=== PATIENT | male | born 1940 | race Caucasian/White ===

== ENCOUNTER → 2022-01-28 | Outpatient (CLI) | payer MEDICARE ==
[~2022-01-28] MED LIST: ASCO500 PO; ASPI81CH PO; CARV6.25 PO; DIGO.125 PO; DILT180ER PO; DILT240 PO; DULERA 100 MCG/13 GM INH; FERR325 PO; FOLI1 PO; FOLI400 PO; INS70/30PN SC; IPRAIS NEB; IRBE150 PO; IRON PO; IRON150C PO; LISI5 PO; METF500 PO; PANT40 PO; PRAV20 PO; PRED20 PO; Pravachol40 MG PO; UBID10 PO; Vitamin D2000 UNIT PO; WARF5 PO; WARF7.5 PO
== END | disposition home or self-care (01) ==
LOC: LAB SHORT 15:07 → PLD 15:07
DX: L72.8 Other follicular cysts of the skin and subcutaneous tissue (principal)
CPT/HCPCS: 88305

== ENCOUNTER 2022-12-16 08:07 | Day surgery (SDC) | payer MEDICARE ==
[~2022-12-16] VITALS: Ht 200.7 cm; Wt 82.8 kg
--- NOTE | 2022-12-16 08:38 | NUR ---
12/16/22 0838 Myriam Gordon History, Chart, Medications and Allergies reviewed before start of procedure. DR MCKNIGHT PROVIDING ANESTHESIA, SEE RECORDS
[2022-12-16] MEDS ORDERED: CLOP75 PO (08:40)
[2022-12-16 08:41] VITALS: BP 151/51
--- NOTE | 2022-12-16 08:48 | NUR ---
PT TO SDS VIA . History, Chart, Medications and Allergies reviewed before start of procedure. Lungs clear T/O to Auscultation. Patient confirms NPO status and agrees with scheduled surgery. Pre-Op teaching done. Pt verbalizes understanding. Patient States Post-Procedure ride home has been arranged.
[2022-12-16 09:48] VITALS: BP 99/44
--- NOTE | 2022-12-16 09:50 | NUR ---
REPORT RECEIVED FROM EDMOND FRANCOIS RN. PT ABLE TO REPOSITION SELF IN BED. PT REQUESTING PO FLUIDS AND TOLERATING THEM WELL. PT DENIES PAIN, NAUSEA, OR OTHER DISCOMFORTS AT THIS TIME.
[2022-12-16 10:03] VITALS: BP 140/70
--- NOTE | 2022-12-16 10:25 | NUR ---
Patient up to Ambulate independently. Gait steady AND CONSISTENT WITH PT BASELINE. VSS AND CONSISTENT WITH PT BASELINE. Discharge instructions reviewed with patient. Patient verbalizes understanding. Copy given to patient to take home. Patient States Post-Procedure ride home has been arranged. Discharged via wheelchair to private car for ride home. PT BELONGINGS RETURNED TO PT.
== END 2022-12-16 10:27 | disposition home or self-care (01) ==
LOC: ORD 08:07 → ORSCMMR 08:07 → ORD 09:00
PROVIDERS: Internal Medicine Gastroenterology
PROC: 0DB68ZX Excision of Stomach, Via Natural or Artificial Opening Endoscopic, Diagnostic (ICD-10-PCS; principal; 2022-12-16 09:00)
PROC: 0DBL8ZX Excision of Transverse Colon, Via Natural or Artificial Opening Endoscopic, Diagnostic (ICD-10-PCS; principal; 2022-12-16 09:00)
PROC: 0DB98ZX Excision of Duodenum, Via Natural or Artificial Opening Endoscopic, Diagnostic (ICD-10-PCS; principal; 2022-12-16 09:00)
DX: D50.0 Iron deficiency anemia secondary to blood loss (chronic) (principal); K29.50 Unspecified chronic gastritis without bleeding; K31.A0 Gastric intestinal metaplasia, unspecified; D12.3 Benign neoplasm of transverse colon; K57.30 Diverticulosis of large intestine without perforation or abscess without bleeding; K92.1 Melena; G47.33 Obstructive sleep apnea (adult) (pediatric); I25.10 Atherosclerotic heart disease of native coronary artery without angina pectoris; E11.22 Type 2 diabetes mellitus with diabetic chronic kidney disease; N18.9 Chronic kidney disease, unspecified; I73.9 Peripheral vascular disease, unspecified; I48.91 Unspecified atrial fibrillation; Z95.0 Presence of cardiac pacemaker; Z79.02 Long term (current) use of antithrombotics/antiplatelets; Z79.899 Other long term (current) drug therapy
CPT/HCPCS: 82947; 88305; 88342; J2704; J7120

== ENCOUNTER → 2023-02-10 | Outpatient (CLI) | payer MEDICARE ==
[~2023-02-10] MED LIST changes: +CLOP75 PO
[2023-02-10 19:32] LABS: BASOPHILS PERCENT AUTO 2 % (0-2); EOSINOPHILS ABSOLUTE AUTO 0.41 K/mm3 (0.00-0.68); EOSINOPHILS PERCENT AUTO 7 % (0-6); Hematocrit 33.8 % (37.0-53.0); Hemoglobin 10.7 g/dL (13.5-17.5); IMMATURE GRAN ABSOLUTE AUTO 0.03 K/mm3 (0.00-0.10); IMMATURE GRAN PERCENT AUTO 1 % (0-1); LYMPHOCYTES PERCENT AUTO 13 % (21-46); MONOCYTES ABSOLUTE AUTO 0.59 K/mm3 (0.16-1.47); MONOCYTES PERCENT AUTO 10 % (4-13); Mean Corpuscular HGB 25.8 pg (26.0-34.0); Mean Corpuscular HGB Conc 31.7 g/dL (31.5-36.5); Mean Corpuscular Volume 82 fL (80-100); Mean Platelet Volume 10.4 fL (9.1-12.4); NEUTROPHILS ABSOLUTE AUTO 4.28 K/mm3 (1.96-9.15); NEUTROPHILS PERCENT AUTO 69 % (41-73); Platelet Count 146 K/mm3 (150-400); RDW Coefficient Variation 13.8 % (11.7-14.2); RDW Standard Deviation 40.5 fL (35.1-46.3); Red Blood Cell Count 4.14 M/mm3 (4.30-5.90); White Blood Cell Count 6.21 K/mm3 (4.00-11.30)
[2023-02-10 20:31] LABS: Alanine Aminotransfer (ALT/SGP 18 U/L (12-78); Albumin, Blood 3.8 g/dL (3.4-5.0); Albumin/Globulin Ratio 1.2 (0.8-1.8); Alk Phos 84 U/L (50-136); Anion Gap 7 mmol/L (6-16); Aspartate Aminotrans (AST/SGOT 52 U/L (12-37); Bilirubin, Total 0.7 mg/dL (0.1-1.0); Blood Urea Nitrogen 31 mg/dL (8-24); CHOL/HDL RATIO 4.6; CO2, Blood 24 mmol/L (21-32); Calcium, Blood 9.3 mg/dL (8.5-10.1); Chloride, Blood 109 mmol/L (98-108); Cholesterol 151 mg/dL (50-200); Creatinine, Blood 1.72 mg/dL (0.60-1.20); Globulin, Blood 3.3 g/dL (2.2-4.0); Glomerular Filtration Rate 39 (60-); Glucose, Blood 113 mg/dL (70-99); HDL Cholesterol 33 mg/dL (>39); Low Density Lipoprotein Chol 99 mg/dL (0-110); Potassium, Blood 4.4 mmol/L (3.5-5.5); Sodium, Blood 140 mmol/L (136-145); Total Protein, Blood 7.1 g/dL (6.4-8.2); Triglycerides 96 mg/dL (30-160); Very Low Density Lipoprot Chol 19 mg/dL (6-32)
== END | disposition home or self-care (01) ==
LOC: LAB SHORT 12:45 → LAB 12:45
PROVIDERS: Family Medicine
DX: E03.9 Hypothyroidism, unspecified (principal); E78.2 Mixed hyperlipidemia; I10 Essential (primary) hypertension
CPT/HCPCS: 80053; 80061; 84436; 84443; 85025

== ENCOUNTER 2024-01-12 15:49 | Emergency (ER) | payer MEDICARE ==
[~2024-01-12] VITALS: Ht 170.2 cm; Wt 81.7 kg
[~2024-01-12 15:49] MED LIST changes: -FERR325 PO; +FERSU300 PO
[2024-01-12 16:39] LABS: BASOPHILS ABSOLUTE AUTO 0.09 K/mm3 (0.00-0.23); BASOPHILS PERCENT AUTO 1 % (0-2); EOSINOPHILS PERCENT AUTO 9 % (0-6); Hematocrit 36.5 % (37.0-53.0); Hemoglobin 11.9 g/dL (13.5-17.5); IMMATURE GRAN ABSOLUTE AUTO 0.02 K/mm3 (0.00-0.10); IMMATURE GRAN PERCENT AUTO 0 % (0-1); LYMPHOCYTES ABSOLUTE AUTO 0.83 K/mm3 (0.84-5.20); LYMPHOCYTES PERCENT AUTO 11 % (21-46); MONOCYTES PERCENT AUTO 9 % (4-13); Mean Corpuscular HGB 29.1 pg (26.0-34.0); Mean Corpuscular HGB Conc 32.6 g/dL (31.5-36.5); Mean Corpuscular Volume 89 fL (80-100); Mean Platelet Volume 9.6 fL (9.1-12.4); NEUTROPHILS ABSOLUTE AUTO 5.22 K/mm3 (1.96-9.15); NEUTROPHILS PERCENT AUTO 69 % (41-73); Platelet Count 151 K/mm3 (150-400); RDW Coefficient Variation 13.8 % (11.7-14.2); RDW Standard Deviation 45.5 fL (35.1-46.3); Red Blood Cell Count 4.09 M/mm3 (4.30-5.90); White Blood Cell Count 7.56 K/mm3 (4.00-11.30)
[2024-01-12] MEDS ORDERED: Vitamin D2000 UNIT PO (16:54)
[2024-01-12] MEDS ORDERED: FURO20 PO (16:54)
[2024-01-12] MEDS ORDERED: EUTHYROX50 MCG PO (16:54)
[2024-01-12] MEDS ORDERED: AMOCLA875 PO (16:55)
[2024-01-12] MEDS ORDERED: Lyrica25 MG PO (16:55)
[2024-01-12] MEDS ORDERED: Doxycycline Mo100 M1 PO (16:55)
[2024-01-12 17:02] LABS: Albumin, Blood 3.6 g/dL (3.4-5.0); Albumin/Globulin Ratio 1.1 (0.8-1.8); Bilirubin, Total 0.7 mg/dL (0.1-1.0); Bun/Creatinine Ratio 16.6 (12.0-20.0); Calcium, Blood 9.1 mg/dL (8.5-10.1); Creatinine, Blood 1.87 mg/dL (0.60-1.20); Globulin, Blood 3.4 g/dL (2.2-4.0); Potassium, Blood 4.5 mmol/L (3.5-5.5)
[2024-01-12] MEDS ORDERED: NS 1,000 ML IV SCH (17:35)
[2024-01-12] MEDS ORDERED: Morphine Sulfate 4 MG/1 ML Injection IV ONE (17:40)
[2024-01-12] MEDS ORDERED: Acetaminophen 500 MG Tab PO ONE (17:40)
[2024-01-12 18:02] VITALS: BP 142/92
[2024-01-12] MEDS ORDERED: Morphine Sulfat15 MG PO (18:04)
== END 2024-01-12 18:50 | disposition home or self-care (01) ==
LOC: ER 15:49
PROVIDERS: Physician Assistant
DX: E11.621 Type 2 diabetes mellitus with foot ulcer (principal); L97.529 Non-pressure chronic ulcer of other part of left foot with unspecified severity; M86.9 Osteomyelitis, unspecified; N17.9 Acute kidney failure, unspecified; Z88.8 Allergy status to other drugs, medicaments and biological substances; Z88.2 Allergy status to sulfonamides; Z79.899 Other long term (current) drug therapy; I10 Essential (primary) hypertension; I48.91 Unspecified atrial fibrillation; E11.40 Type 2 diabetes mellitus with diabetic neuropathy, unspecified
CPT/HCPCS: 80053; 83605; 85025; 86140; 96361; 96374; 99284-25; A9270; J2270; J7030

== ENCOUNTER 2024-01-16 07:13 | Day surgery (SDC) | payer MEDICARE ==
[~2024-01-16 07:13] MED LIST changes: +AMOCLA875 PO; +Doxycycline Mo100 M1 PO; +EUTHYROX50 MCG PO; +FURO20 PO; +Lyrica25 MG PO; +Morphine Sulfat15 MG PO
[2024-01-16] MEDS ORDERED: Lidocaine HCl 4% Cream 5 GM ONE (12:25)
== END 2024-01-17 00:04 | disposition home or self-care (01) ==
LOC: WOUND 07:13
DX: E11.621 Type 2 diabetes mellitus with foot ulcer (principal); L97.522 Non-pressure chronic ulcer of other part of left foot with fat layer exposed; E11.40 Type 2 diabetes mellitus with diabetic neuropathy, unspecified; I48.91 Unspecified atrial fibrillation; J44.9 Chronic obstructive pulmonary disease, unspecified; G47.30 Sleep apnea, unspecified; E11.51 Type 2 diabetes mellitus with diabetic peripheral angiopathy without gangrene; E11.22 Type 2 diabetes mellitus with diabetic chronic kidney disease; I13.0 Hypertensive heart and chronic kidney disease with heart failure and stage 1 through stage 4 chronic kidney disease, or unspecified chronic kidney disease; N18.30 Chronic kidney disease, stage 3 unspecified; I50.9 Heart failure, unspecified; E11.59 Type 2 diabetes mellitus with other circulatory complications; M86.9 Osteomyelitis, unspecified; Z88.2 Allergy status to sulfonamides; Z87.891 Personal history of nicotine dependence
CPT/HCPCS: A9270; G0463

== ENCOUNTER 2024-02-13 00:55 | Day surgery (SDC) | payer MEDICARE | END 2024-02-14 22:53 | disposition home or self-care (01) | LOC: WOUND 00:55 | DX: E11.621 Type 2 diabetes mellitus with foot ulcer (principal); E11.59 Type 2 diabetes mellitus with other circulatory complications; M86.9 Osteomyelitis, unspecified; E11.51 Type 2 diabetes mellitus with diabetic peripheral angiopathy without gangrene; E11.22 Type 2 diabetes mellitus with diabetic chronic kidney disease; I12.9 Hypertensive chronic kidney disease with stage 1 through stage 4 chronic kidney disease, or unspecified chronic kidney disease; N18.30 Chronic kidney disease, stage 3 unspecified; J44.9 Chronic obstructive pulmonary disease, unspecified | CPT/HCPCS: G0463 ==

== ENCOUNTER 2024-02-27 02:13 | Day surgery (SDC) | payer MEDICARE ==
[2024-02-27] MEDS ORDERED: Lidocaine HCl 4% Cream 5 GM ONE (10:32)
== END 2024-02-27 23:00 | disposition home or self-care (01) ==
LOC: WOUND 02:13
DX: E11.621 Type 2 diabetes mellitus with foot ulcer (principal); L97.512 Non-pressure chronic ulcer of other part of right foot with fat layer exposed; E11.69 Type 2 diabetes mellitus with other specified complication; M86.9 Osteomyelitis, unspecified; I12.9 Hypertensive chronic kidney disease with stage 1 through stage 4 chronic kidney disease, or unspecified chronic kidney disease; E11.22 Type 2 diabetes mellitus with diabetic chronic kidney disease; N18.30 Chronic kidney disease, stage 3 unspecified; J44.9 Chronic obstructive pulmonary disease, unspecified; E11.51 Type 2 diabetes mellitus with diabetic peripheral angiopathy without gangrene
CPT/HCPCS: A9270

== ENCOUNTER 2024-03-12 04:00 | Day surgery (SDC) | payer MEDICARE ==
[2024-03-12] MEDS ORDERED: Lidocaine HCl 4% Cream 5 GM ONE (10:30)
== END 2024-03-12 23:00 ==
LOC: WOUND 04:00
DX: E11.621 Type 2 diabetes mellitus with foot ulcer (principal); L97.522 Non-pressure chronic ulcer of other part of left foot with fat layer exposed; E11.59 Type 2 diabetes mellitus with other circulatory complications; M86.9 Osteomyelitis, unspecified; E11.22 Type 2 diabetes mellitus with diabetic chronic kidney disease; I12.9 Hypertensive chronic kidney disease with stage 1 through stage 4 chronic kidney disease, or unspecified chronic kidney disease; N18.30 Chronic kidney disease, stage 3 unspecified; J44.9 Chronic obstructive pulmonary disease, unspecified; E11.51 Type 2 diabetes mellitus with diabetic peripheral angiopathy without gangrene; I48.91 Unspecified atrial fibrillation
CPT/HCPCS: A9270; G0463

== ENCOUNTER 2024-03-19 04:42 | Day surgery (SDC) | payer MEDICARE | END 2024-03-20 23:15 | disposition home or self-care (01) | LOC: WOUND 04:42 | DX: E11.621 Type 2 diabetes mellitus with foot ulcer (principal); L97.522 Non-pressure chronic ulcer of other part of left foot with fat layer exposed; E11.40 Type 2 diabetes mellitus with diabetic neuropathy, unspecified; I48.91 Unspecified atrial fibrillation; J44.9 Chronic obstructive pulmonary disease, unspecified; E11.59 Type 2 diabetes mellitus with other circulatory complications; I12.9 Hypertensive chronic kidney disease with stage 1 through stage 4 chronic kidney disease, or unspecified chronic kidney disease; E11.22 Type 2 diabetes mellitus with diabetic chronic kidney disease; N18.30 Chronic kidney disease, stage 3 unspecified; E11.51 Type 2 diabetes mellitus with diabetic peripheral angiopathy without gangrene | CPT/HCPCS: G0463 ==